=== PATIENT | female | born 1990 | race Caucasian/White ===

== ENCOUNTER 2019-11-21 19:06 | Emergency (ER) | payer MEDICAID ==
[~2019-11-21] VITALS: Ht 160 cm; Wt 84.4 kg
--- NOTE | 2019-11-21 19:06 | NUR ---
Patient triaged and placed in waiting room. VSS and patient appears in no acute distress at this time. Accompanied by FAM MEMBER, awaiting available bed, and MD notified of need for MSE.
[2019-11-21 19:10] VITALS: BP_SYST 146
--- NOTE | 2019-11-21 22:20 | NUR ---
CALLED PT NAME IN THE WR.NO ANSWER.
--- NOTE | 2019-11-21 22:25 | NUR ---
CALLED PT NAME IN THE WR.NO ANSWER.
--- NOTE | 2019-11-21 22:30 | NUR ---
CALLED PT NAME IN THE WR.NO ANSWER.
== END 2019-11-21 22:30 | disposition left against medical advice (07) ==
LOC: SED 19:06
DX: R10.32 Left lower quadrant pain (principal); Z53.21 Procedure and treatment not carried out due to patient leaving prior to being seen by health care provider